=== PATIENT | male | born 1945 | race Caucasian/White ===

== ENCOUNTER 2017-01-21 09:47 | Emergency (ER) | payer BC ==
[2017-01-21 10:47] VITALS: BP 155/63
--- NOTE | 2017-01-21 10:56 | UC ---
Eye Complaint HPI - HPI Summary HPI Summary: 71 year old male presents with complains of right eye discharge, erythema, and foreign body sensation. - History of Current Complaint Chief Complaint: UCEye Stated Complaint: RIGHT EYE COMPLAINT Time Seen by Provider: 01/21/17 10:52 Hx Obtained From: Patient Onset/Duration: Sudden Onset, Lasting Hours Timing: Constant Severity Initially: Moderate Severity Currently: Moderate Pain Scale Used: 0-10 Numeric - 5 - Allergies/Home Medications Allergies/Adverse Reactions: Allergies Allergy/AdvReac Type Severity Reaction Status Date / Time No Known Allergies Allergy Verified 01/21/17 10:26 Home Medications: Home Medications Cholesterol Med,?Name 1 tab PO 01/21/17 [History] Misc Natural Products [Osteo Bi-Flex Joint Shiel] 1 tab PO DAILY 01/21/17 [ History Confirmed 01/21/17] Naproxen Sodium [Naproxen Sodium 220 mg cap] 440 mg PO Q12H PRN 01/21/17 [ History Confirmed 01/21/17] PMH/Surg Hx/FS Hx/Imm Hx - Surgical History Surgical History: Yes Surgery Procedure, Year, and Place: Bilateral LENS CATARACT. HERNIA REPAIR. LOCAL ANESTHESIA- FOR HAND INJURY IN 9 TH GRADE - Family History Known Family History: Positive: None - Social History Alcohol Use: None Substance Use Type: None Smoking Status (MU): Never Smoked Tobacco Review of Systems Constitutional: Negative Skin: Negative Eyes: Drainage, Eye Redness, Photophobia ENT: Negative Respiratory: Negative Cardiovascular: Negative Gastrointestinal: Negative Genitourinary: Negative Motor: Negative Neurovascular: Negative Musculoskeletal: Negative Neurological: Negative Psychological: Negative All Other Systems Reviewed And Are Negative: Yes Physical Exam Triage Information Reviewed: Yes Vital Signs: Initial Vital Signs Temp 36.6 C 01/21/17 10:29 Pulse 58 01/21/17 10:29 Resp 18 01/21/17 10:29 BP 155/63 01/21/17 10:29 Pulse Ox 96 01/21/17 10:29 Vital Signs Reviewed: Yes Eye Exam: Normal Eyes: Positive: Conjunctiva Inflamed, Discharge ENT Exam: Normal Dental Exam: Normal Neck exam: Normal Neck: Positive: 1 Respiratory Exam: Normal Cardiovascular Exam: Normal Abdominal Exam: Normal Musculoskeletal Exam: Normal Neurological Exam: Normal Psychological Exam: Normal Skin Exam: Normal Eye Complaint Course/Dx - Differential Dx/Diagnosis Provider Diagnoses: right eye allergic conjunctivitis Discharge - Discharge Plan Condition: Stable Disposition: HOME Prescriptions: Tobramycin/Dexameth OPTH.SUSP* [Tobradex 0.3-0.1%*] 1 drop RIGHT EYE Q4H #1 btl Patient Education Materials: Conjunctivitis (ED) Referrals: Billy Cochran MD [Primary Care Provider] - Gabe Bunn MD [Medical Doctor] - Additional Instructions: use eye drops for 3 to 5 days
== END 2017-01-21 11:12 | disposition home or self-care (01) ==
LOC: UCCORT 09:47
DX: H10.11 Acute atopic conjunctivitis, right eye (principal); Z98.42 Cataract extraction status, left eye; Z98.41 Cataract extraction status, right eye
CPT/HCPCS: 99212; G0463

== ENCOUNTER 2017-05-01 08:20 | Observation (INO) | payer BC ==
[2017-05-01] MEDS ORDERED: NS 0.9% 1000 ML* 1,000 ML IV ONE (08:57)
[2017-05-01] MEDS ORDERED: Meclizine TAB* 12.5 MG PO ONE (08:57)
[2017-05-01 09:19] LABS: Hematocrit 47 % (42-52); Hemoglobin 16.3 g/dl (14.0-18.0); Mean Corpuscular HGB Conc 34 g/dl (31-36); Mean Corpuscular Hemoglobin 31 pg (27-31); Mean Corpuscular Volume 90 fL (80-94); Mean Platelet Volume 9 um3 (7.4-10.4); Red Blood Count 5.27 10^6/ul (4.0-5.4); Red Cell Distribution Width 13 % (10.5-15); White Blood Count 9.9 10^3/ul (3.5-10.8)
[2017-05-01 09:33] LABS: Anion Gap 6 mmol/L (2-11); BUN/Creatinine Ratio 17.7 (8-20); Blood Urea Nitrogen 20 mg/dL (6-24); CO2 Carbon Dioxide 28 mmol/L (22-32); Calcium 9.4 mg/dL (8.6-10.3); Chloride 103 mmol/L (101-111); EGFR African American 82.7 (>60); EGFR Non-African American 64.3 (>60); Glucose 112 mg/dL (70-100); Potassium 3.9 mmol/L (3.5-5.0); Sodium 137 mmol/L (133-145); Total Protein 6.9 g/dL (6.4-8.9)
--- NOTE | 2017-05-01 09:33 | RAD ---
INDICATION: Dizziness. COMPARISON: There are no prior studies available for comparison. TECHNIQUE: Contiguous axial sections of the brain were obtained from the skull base to the vertex without contrast. FINDINGS: The ventricles, cisterns and sulci are within normal limits. No significant focal abnormality or mass effect is seen. There is no evidence for hemorrhage. There is an oval-shaped mass within the left maxillary sinus measuring 2.8 x 1.6 cm in size most consistent with a mucous retention cyst or polyp. The visualized portion of the paranasal sinuses otherwise appear clear. IMPRESSION: 1. NO EVIDENCE FOR ACUTE INTRACRANIAL ABNORMALITY. 2. MUCOUS RETENTION CYST VERSUS POLYP WITHIN THE LEFT MAXILLARY SINUS.
[2017-05-01 09:34] LABS: ALT 30 U/L (7-52); AST 19 U/L (13-39); Alkaline Phosphatase 70 U/L (34-104); C Reactive Protein 4.69 mg/L (< 5.00); Creatine Kinase 46 U/L (10-223); Globulin 2.9 g/dL (2-4)
[2017-05-01 09:35] LABS: Troponin I 0.01 ng/mL (<0.04)
--- NOTE | 2017-05-01 09:52 | RAD ---
INDICATION: Dizziness. COMPARISON: There are no prior studies available for comparison. TECHNIQUE: Dual-energy PA and lateral views of the chest were obtained. FINDINGS: The heart is within normal limits in size. Mediastinal and hilar contours appear within normal limits. The lungs are hyperinflated and clear. No pleural effusion is seen. IMPRESSION: NO EVIDENCE FOR ACTIVE CARDIOPULMONARY DISEASE.
[2017-05-01 09:55] LABS: Alcohol < 10 mg/dL (<10)
[2017-05-01] MEDS ORDERED: cefTRIAXone(*) 1 GM in NS 0.9% 50 ML* 50 ML IVPB ONE (10:07)
[2017-05-01 10:17] LABS: TSH (Thyroid Stimulating Horm) 1.73 mcIU/mL (0.34-5.60)
--- NOTE | 2017-05-01 11:40 | RAD ---
INDICATION: Right upper extremity swelling and pain. COMPARISON: There are no prior studies available for comparison. TECHNIQUE: Multiple real-time, color flow and Doppler tracings of the right upper extremity were obtained. FINDINGS: The axillary, brachial, basilic and cephalic veins all demonstrate normal compressibility, augmentation with compression and phasic response with respiration. The radial and ulnar veins demonstrate normal compressibility. The subclavian and internal jugular veins also demonstrate normal color flow imaging and phasic response with respiration. IMPRESSION: NO EVIDENCE FOR DEEP VENOUS THROMBOSIS.
[2017-05-01] MEDS ORDERED: Triamterene/HCTZ 37.5-25 MG* CAP PO ONE (12:06)
[2017-05-01 12:17] LABS: Urine Bacteria Absent (Absent); Urine Bilirubin Negative (Negative); Urine Glucose Negative (Negative); Urine Nitrite Negative (Negative)
[2017-05-01] MEDS ORDERED: Aspirin TAB* 325 MG PO ONE (13:35)
[2017-05-01] MEDS ORDERED: Atorvastatin* 80 MG TAB PO ONE (13:38)
[2017-05-01] MEDS ORDERED: Acetaminophen TAB* 325 MG PO PRN (13:44)
--- NOTE | 2017-05-01 15:47 | RAD ---
INDICATION: Unsteady gait, posterior CVA. COMPARISON: Comparison is made with a prior CT of the brain from May 01, 2017. TECHNIQUE: Sagittal T1, axial T1, T2, susceptibility, FLAIR and diffusion weighted images were obtained. FINDINGS: The ventricles, cisterns and sulci appear to be within normal limits. There are few small areas of increased signal intensity and T2-weighted images present in the subcortical white matter in the right frontal and temporal lobe suggestive of mild chronic small vessel ischemic changes. No other focal abnormality or mass effect is seen. No areas of restricted diffusion are present. There is no evidence for infarct or hemorrhage. There is a 2.2 cm nodular density within the left maxillary sinus most consistent with a polyp or mucous retention cyst. The visualized portion of the paranasal sinuses and mastoid air cells otherwise appear clear. IMPRESSION: 1. NO EVIDENCE FOR ACUTE INTRACRANIAL ABNORMALITY. 2. FINDINGS SUGGESTIVE OF MILD CHRONIC SMALL VESSEL ISCHEMIC CHANGES.
[2017-05-01] MEDS: Atorvastatin* 80 MG TAB PO SCH (17:59)
--- NOTE | 2017-05-01 18:25 | ED ---
Magui Velez Alfonso scribed for Delbert Ruby MD on 05/01/17 at 1002 . Dizziness - HPI Summary HPI Summary: This patient is a 71 year old M presenting to [facility] accompanied by female with a chief complaint of room spinning dizziness and lightheadedness since waking up today. He states its like I am drunk. The patient rates the pain 3/10 in severity. Symptoms aggravated by movement. Symptoms alleviated by rest. Patient reports right wrist pain and swelling. Patient denies headache, blurred vision, palpitations, CP, SOB, sinus pressure, ear pain, rhinorrhea, sore throat, and N/ V. - History Of Current Complaint Chief Complaint: EDDizziness Stated Complaint: DIZZY, RIGHT HAND WRIST INJURY Time Seen by Provider: 05/01/17 08:47 Hx Obtained From: Patient Timing: Constant Character: Room Spinning, Lightheaded Aggravating Factor(s): Other - Movement Alleviating Factor(s): Rest Associated Signs And Symptoms: Positive: Other: - right wrist pain and swelling. Patient denies headache, blurred vision, palpitations, CP, SOB, sinus pressure, ear pain, rhinorrhea, sore throat, and N/V. - Allergies/Home Medications Allergies/Adverse Reactions: Allergies Allergy/AdvReac Type Severity Reaction Status Date / Time No Known Allergies Allergy Verified 05/01/17 08:27 PMH/Surg Hx/FS Hx/Imm Hx Cardiovascular History: Reports: Hx Hypertension - HISTORY OF IN THE PAST Respiratory History: Reports: Hx Sleep Apnea - IMPROVING WITH WEIGHT LOSS Sensory History: Reports: Hx Cataracts - LEFT EYE, Hx Contacts or Glasses - GLASSES Denies: Hx Hearing Aid Opthamlomology History: Reports: Hx Cataracts - LEFT EYE, Hx Contacts or Glasses - GLASSES EENT History: Denies: Hx Deafness - Surgical History Surgery Procedure, Year, and Place: Bilateral LENS CATARACT. HERNIA REPAIR Hx Anesthesia Reactions: No Infectious Disease History: Yes Infectious Disease History: Denies: Traveled Outside the [place] in Last 30 Days - Family History Known Family History: Positive: Cardiac Disease - [place], Other - Pancreatic cancer - Social History Alcohol Use: None Hx Substance Use: No Substance Use Type: Reports: None Hx Tobacco Use: No Smoking Status (MU): Never Smoked Tobacco Review of Systems Negative: Fever Negative: Blurred Vision Positive: Other - Negative sinus pressure. Negative: Sore Throat, Ear Ache, Nasal Discharge Negative: Palpitations, Chest Pain Negative: Shortness Of Breath Negative: Vomiting, Nausea Positive: Other - right wrist pain and swelling Neurological: Other - room spinning dizziness and lightheadedness Negative: Headache All Other Systems Reviewed And Are Negative: Yes Physical Exam - Summary Physical Exam Summary: VITAL SIGNS: Reviewed. GENERAL: Patient is a well-developed and obese male who is lying comfortable in the stretcher. Patient is not in any acute respiratory distress. HEAD AND FACE: No signs of trauma. No ecchymosis, hematomas or skull depressions. No sinus tenderness. EYES: PERRLA, EOMI x 2, No injected conjunctiva, no nystagmus. No photophobia. EARS: Hearing grossly intact. Ear canals and tympanic membranes are within normal limits. MOUTH: Oropharynx within normal limits. NECK: Supple, trachea is midline, no adenopathy, no JVD, no carotid bruit, no c- spine tenderness, neck with full ROM. No meningeal signs, no Kernig's or brudzinskis signs. CHEST: Symmetric, no tenderness at palpation LUNGS: Clear to auscultation bilaterally. No wheezing or crackles. CVS: Regular rate and rhythm, S1 and S2 present, no murmurs or gallops appreciated. ABDOMEN: Soft, non-tender. No signs of distention. No rebound no guarding, and no masses palpated. Bowel sounds are normal. EXTREMITIES: FROM in all major joints, no edema, no cyanosis or clubbing. NEURO: Alert and oriented x 3. No acute neurological deficits. Speech is normal and follows commands. SKIN: Dry and warm. Red streaking at right forearm ventral aspect going from the wrist to the antecubital fossa GCS: 15 Triage Information Reviewed: Yes Vital Signs On Initial Exam: Initial Vitals Temp Pulse Resp BP Pulse Ox 97.5 F 45 16 171/75 96 05/01/17 08:27 05/01/17 08:27 05/01/17 08:27 05/01/17 08:27 05/01/17 08:27 Vital Signs Reviewed: Yes - [place] Coma Scale Coma Scale Total: 15 Diagnostics - Vital Signs Vital Signs Temp Pulse Resp BP Pulse Ox 05/01/17 09:53 160/90 05/01/17 09:43 184/63 05/01/17 09:33 50 14 95 05/01/17 09:05 50 17 181/80 95 05/01/17 09:00 54 18 96 05/01/17 08:52 49 183/88 96 05/01/17 08:51 53 95 05/01/17 08:27 97.5 F 45 16 171/75 96 - Laboratory Lab Results: Lab Results 05/01/17 05/01/17 05/01/17 Range/Units 09:03 09:03 09:03 WBC 9.9 (3.5-10.8) 10^3/ul RBC 5.27 (4.0-5.4) 10^6/ul Hgb 16.3 (14.0-18.0) g/dl Hct 47 (42-52) % MCV 90 (80-94) fL MCH 31 (27-31) pg MCHC 34 (31-36) g/dl RDW 13 (10.5-15) % Plt Count 195 (150-450) 10^3/ul MPV 9 (7.4-10.4) um3 Neut % (Auto) 74.2 (38-83) % Lymph % (Auto) 14.7 L (25-47) % Johnston % (Auto) 7.8 (1-9) % Eos % (Auto) 2.6 (0-6) % Baso % (Auto) 0.7 (0-2) % Absolute Neuts (auto) 7.4 (1.5-7.7) 10^3/ul Absolute Lymphs (auto) 1.5 (1.0-4.8) 10^3/ul Absolute Monos (auto) 0.8 (0-0.8) 10^3/ul Absolute Eos (auto) 0.3 (0-0.6) 10^3/ul Absolute Basos (auto) 0.1 (0-0.2) 10^3/ul Absolute Nucleated RBC 0.01 10^3/ul Nucleated RBC % 0.1 Sodium 137 (133-145) mmol/L Potassium 3.9 (3.5-5.0) mmol/L Chloride 103 (101-111) mmol/L Carbon Dioxide 28 (22-32) mmol/L Anion Gap 6 (2-11) mmol/L BUN 20 (6-24) mg/dL Creatinine 1.13 (0.67-1.17) mg/dL Est GFR ( Amer) 82.7 (>60) Est GFR (Non-Af Amer) 64.3 (>60) BUN/Creatinine Ratio 17.7 (8-20) Glucose 112 H (70-100) mg/dL Lactic Acid 1.3 (0.5-2.0) mmol/L Calcium 9.4 (8.6-10.3) mg/dL Magnesium 2.0 (1.9-2.7) mg/dL Total Bilirubin 1.10 H (0.2-1.0) mg/dL AST 19 (13-39) U/L ALT 30 (7-52) U/L Alkaline Phosphatase 70 (34-104) U/L Total Creatine Kinase 46 (10-223) U/L Troponin I 0.01 (<0.04) ng/mL C-Reactive Protein 4.69 (< 5.00) mg/L Total Protein 6.9 (6.4-8.9) g/dL Albumin 4.0 (3.2-5.2) g/dL Globulin 2.9 (2-4) g/dL Albumin/Globulin Ratio 1.4 (1-3) TSH Pending Serum Alcohol < 10 (<10) mg/dL Result Diagrams: 05/01/17 09:03 05/01/17 09:03 Lab Statement: Any lab studies that have been ordered have been reviewed, and results considered in the medical decision making process. - Radiology CXR Radiology Interpretation Completed By: Radiologist - NO EVIDENCE FOR ACTIVE CARDIOPULMONARY DISEASE. ED physician has reviewed this radiology report and agrees. - CT Brain CT Interpretation Completed By: Radiologist - 1. NO EVIDENCE FOR ACUTE INTRACRANIAL ABNORMALITY. 2. MUCOUS RETENTION CYST VERSUS POLYP WITHIN THE LEFT MAXILLARY SINUS. ED physician has reviewed this radiology report and agrees. - EKG 0937 Cardiac Rate: Bradycardia EKG Rhythm: Sinus Bradycardia - 49 BPM EKG Interpretation: No ST elevations. - Additional Comments Diagnostic Additional Comments: Venous Doppler study reveals, per radiologist, NO EVIDENCE FOR DEEP VENOUS THROMBOSIS. ED physician has reviewed this radiology report and agrees. Dizzy Course/Dx - Course Assessment/Plan: This patient is a 71 year old M presenting to [facility] accompanied by female with a chief complaint of room spinning dizziness and lightheadedness since waking up today. He states its like I am drunk. The patient rates the pain 3/10 in severity. Symptoms aggravated by movement. Symptoms alleviated by rest. Patient reports right wrist pain and swelling. Patient denies headache, blurred vision, palpitations, CP, SOB, sinus pressure, ear pain, rhinorrhea, sore throat, and N/V. An EKG reveals SB at 49 BPM. CXR reveals, per radiologist, NO EVIDENCE FOR ACTIVE CARDIOPULMONARY DISEASE. ED physician has reviewed this radiology report and agrees. CT Brain reveals, per radiologist, 1. NO EVIDENCE FOR ACUTE INTRACRANIAL ABNORMALITY. 2. MUCOUS RETENTION CYST VERSUS POLYP WITHIN THE LEFT MAXILLARY SINUS. ED physician has reviewed this radiology report and agrees. Venous Doppler study reveals, per radiologist, NO EVIDENCE FOR DEEP VENOUS THROMBOSIS. ED physician has reviewed this radiology report and agrees. Test results with no significant abnormalities. I believe the patient is developing cellulitis at the [facility] therefore he was given Rocephin. The patients heartrate has decreased to 42 BPM and then he becomes symptomatic. The patient is currently not taking any beta blockers or calcium channel blockers. At this point, I consulted Dr. Taylor (hospitalist) at 1151 who agrees to admit. Patient will be admitted with follow up from Dr. Taylor. The patient is agreeable with this plan. The patient is hemodynamically stable, alert and oriented x3. - Diagnoses Provider Diagnoses: Cellulitis of right upper extremity, Symptomatic bradycardia - Provider Notifications Discussed Care Of Patient With: Gissel Taylor Time Discussed With Above Provider: 11:51 Instructed by Provider To: Other - Consulted Dr. Taylor (hospitalist) at 1151 who agrees to admit. Discharge - Discharge Plan Condition: Stable Disposition: ADMITTED TO [facility] documentation as recorded by the Magui phoenix Alfonso accurately reflects the service I personally performed and the decisions made by me, Delbert Ruby MD.
[2017-05-01] MEDS: Cephalexin CAP* 500 MG PO SCH (20:38)
--- NOTE | 2017-05-01 21:59 | HP ---
CC: Dr. Cochran * [facility] MEDICINE HISTORY AND PHYSICAL: DATE OF ADMISSION: 05/01/17 ATTENDING PHYSICIAN: Gissel Tellez MD * (dictation provided by Gloria Donahue NP ). CHIEF COMPLAINT: Unsteady gait. HISTORY OF PRESENT ILLNESS: Mr. Levin is a 71-year-old male with the past medical history of hyperlipidemia who presents to the hospital today with concern for unsteady gait. Mr. Levin states that he was feeling in his normal state of health yesterday. On the , he did feel perhaps he was coming down with a cold and felt ill all over, but then this resolved. He went to bed last night and was feeling well. When he woke up this morning, he felt unsteady even while lying in the bed. He does not describe dizziness, but describes a sensation of an unsteady imbalance. He has no vision changes, no double vision. He ambulated at home and was very unsteady on his feet and asked his to be brought to the emergency room. It is very unusual for the patient as he generally avoids medical care if at all possible and has been otherwise healthy. In the emergency room, the patient was described as being dizzy. He had a CT of the brain which showed no acute abnormality. He had a chest x-ray, which showed no acute abnormality. His labs were unremarkable; however, there was a concern in the emergency room that the patient had some swelling in his right wrist with some streaking and redness going towards the elbow with concern of infection. The patient states that there had been no trauma to the area, but he did note that it felt a little painful yesterday while he was doing some work. He denies any weakness. He has report of a mild headache in the lower part of his head. PAST MEDICAL HISTORY: 1. Hyperlipidemia. 2. Obstructive sleep apnea. MEDICATIONS: The patient takes aspirin 81 mg p.o. daily and one half of a tablet, statin, he is not sure of the name or the dosage. FAMILY HISTORY: The patient reports that his mother related to Alzheimer's , dad related to alcoholism. SOCIAL HISTORY: No prior alcohol, tobacco, or drug use. The patient lives with his who is healthcare proxy. REVIEW OF SYSTEMS: Constitutional: No fever, no chills, no unintended weight loss. Cardiac: No chest pain. No edema. Respiratory: No cough, hemoptysis, or shortness of breath. GI: No nausea, vomiting, diarrhea, abdominal pain. : No gross hematuria, dysuria. Neuro: Positive for feeling unsteady with imbalance and a wide gait pattern. Eyes: No vision complaints. ENT: No dysphagia. Musculoskeletal: No arthralgias or myalgias. Skin: No rashes, lesions. Psych: No depression or anxiety. PHYSICAL EXAMINATION GENERAL: Mr. Levin is sitting in the bed. He is in no acute distress. He states he does not feel unsteady or imbalanced or dizzy while seated. VITAL SIGNS: Temperature 97.6, pulse rate 60, respiratory rate 18, O2 saturation 97% on room air. Blood pressure 156/93. His blood pressure has been as high as 191 systolically since arrival. LUNGS: Clear to auscultation bilaterally with no accessory muscle use and good aeration. HEART: S1, S2; no murmur, rub, or gallop and regular. ABDOMEN: Soft, nontender with bowel sounds positive x4. EXTREMITIES: No cyanosis or edema. NEUROLOGIC: He moves all extremities equally with good +5 strength. He has no facial asymmetry. His extraocular movements are intact. His pupils are equal and reactive. His deep tendon reflexes are very minimal, but they are reactive and faint. He has no ataxia noted with [id number]. He has a wide-gait pattern. He is unable to do heel-to-toe walking. With Romberg, he is listing forward very faintly and states that he feels like he is trying very hard to compensate. There is no visual field cut. SKIN: Intact. The patient has a small area of swelling on the right wrist. The patient's staff report that the streaking up his arm is decreasing apparently since the first dose of antibiotics in the emergency room. LABORATORY DATA: WBC 9.9, hemoglobin 16.3, hematocrit 47, platelet count 195. Sodium 137, potassium 3.9, chloride 103, serum bicarbonate 28, BUN 20, creatinine 1.13, glucose 112, lactic acid 1.3, total bilirubin 1.10, CRP 4.69. TSH 1.73. Urine shows no evidence of infection. Serum alcohol screen is negative. CT brain shows no evidence for acute intracranial abnormality. Mucous retention cyst versus polyp within the left maxillary sinus. The chest x-ray shows no evidence for active cardiopulmonary disease. Venous Doppler study of the right upper extremity is negative. ASSESSMENT: Mr. Levin is a 71-year-old male with past medical history of hyperlipidemia who takes aspirin 81 mg daily, who presents to the hospital today with concern for gait abnormality and balance issues which started when he awoke this morning. Our plans are for observation in the hospital for the followin. Gait instability and balance issue: I am suspicious for t a posterior circulation cerebrovascular accident. Plan for an MRI of the brain to rule out cerebrovascular accident. If it is positive, we will obtain a CTA of head and neck, telemetry monitoring, echocardiogram, neurological checks. Also plan to look for possible risk factors for stroke by checking a lipid panel, hemoglobin A1c, continue with aspirin 325 mg which has been given now. Continue with statin 80 mg which has been given now. I have consulted with Dr. Hernandez. 2. ? R forearm cellulitis: Patient has had improvement in what was thought to be streaking up in right forearm since he was given antibiotics. Plan for continue keflex BID. 3. Hypertension: Plan to allow for permissible hypertension in the setting of possible cerebrovascular accident, otherwise we will make an effort to control blood pressure as indicated based on the clinical course. I anticipate he will need medications at the time of discharge. 4. Hyperlipidemia: The patient is unsure of the dosage of his home statin, planned for high dose statin now until stroke is ruled out. 5. Obstructive sleep apnea: The patient states he is not able to tolerate CPAP. 6. Code status: Full code. TIME SPENT: Approximately 60 minutes were spent on the admission of this patient, more than half the time was spent with patient at the bedside reviewing the events leading up to this hospitalization, performing physical examination, reviewing my plan of care. GLORIA DONAHUE, AMINA [id number]/CPS #: [id number] BLAISE
[2017-05-02] MEDS ORDERED: Meclizine TAB* 12.5 MG PO SCH (06:00)
[2017-05-02 06:36] LABS: HDL Cholesterol 40.2 mg/dL
[2017-05-02] MEDS: Cephalexin CAP* 500 MG PO SCH (08:35)
[2017-05-02] MEDS ORDERED: Hydrochlorothiazide TAB* 25 MG PO SCH (09:00)
[2017-05-02] MEDS ORDERED: Aspirin TAB* 325 MG PO SCH (10:00)
[2017-05-02] MEDS ORDERED: Iohexol 350* (CONTRAST) 500 ML MDV IV ONE (10:56)
--- NOTE | 2017-05-02 11:44 | RAD ---
INDICATION: TIA. COMPARISON: Correlation is made with a prior MRI of the brain from May 01, 2017. TECHNIQUE: A CT angiogram of the head and neck was performed following intravenous injection of 80 ml of Omnipaque 350 nonionic contrast. Contiguous axial sections were obtained from the thoracic inlet through the skull vertex. Images were reconstructed in the coronal and sagittal planes and in a 3-D volume rendered format. The distal cervical internal carotid artery diameter is used as the denominator for stenosis measurement. FINDINGS: RIGHT CAROTID: The right common and internal carotid arteries appear widely patent without evidence for stenosis. LEFT CAROTID: The left common and internal carotid arteries appear patent without evidence for stenosis. There is minimal calcific plaque present within the carotid bulb. VERTEBRALS: The vertebral arteries appear patent without gross evidence for stenosis. The right vertebral artery is dominant. CTA BRAIN: The internal carotid, anterior and middle cerebral arteries appear patent without evidence for high-grade stenosis or occlusion. The A1 segment of the right anterior cerebral artery is small in caliber possibly representing normal variation. The vertebral, basilar and posterior cerebral arteries appear patent without evidence for high-grade stenosis or occlusion. No gross focal perfusion abnormalities are seen. No aneurysm or vascular malformation is seen. NECK: No significant enlarged lymph nodes are seen. The parotid and submandibular glands appear to be within normal limits. There is a 1.3 x 1.0 cm nodule within the left thyroid lobe. The lung apices appear clear. IMPRESSION: 1. NO EVIDENCE FOR CAROTID STENOSIS. 2. NO EVIDENCE FOR LARGE VESSEL INTRACRANIAL THROMBUS. 3. NODULE WITHIN THE LEFT THYROID LOBE. RECOMMEND FURTHER EVALUATION WITH A THYROID ULTRASOUND. CPT II Codes: 3100F
--- NOTE | 2017-05-02 12:57 | PN ---
Subjective Date of Service: 05/02/17 Interval History: Patient seen and examined at bedside. Patient offers no acute complaints. Gait completely back to normal. Family History: Unchanged from Admission Social History: Unchanged from Admission Past Medical History: Unchanged from Admission Objective Active Medications: Acetaminophen (Tylenol Tab*) 650 mg PO Q6H PRN Aspirin (Aspirin Tab*) 325 mg PO DAILY VIC Atorvastatin Calcium (Lipitor*) 80 mg PO 1700 VIC Cephalexin HCl (Keflex Cap*) 500 mg PO BID VIC Hydrochlorothiazide (Hydrodiuril Tab*) 25 mg PO DAILY VIC Vital Signs Temp Pulse Resp BP Pulse Ox 97.7 F 58 18 139/69 95 05/02/17 11:41 05/02/17 11:41 05/02/17 11:41 05/02/17 11:41 05/02/17 11:41 Oxygen Devices in Use Now: None Appearance: sitting up in bed, NAD Eyes: No Scleral Icterus, PERRLA Ears/Nose/Mouth/Throat: NL Teeth, Lips, Gums Neck: NL Appearance and Movements; NL JVP Respiratory: Symmetrical Chest Expansion and Respiratory Effort, Clear to Auscultation Cardiovascular: NL Sounds; No Murmurs; No JVD, RRR Abdominal: NL Sounds; No Tenderness; No Distention Extremities: No Edema Skin: No Rash or Ulcers Neurological: Alert and Oriented x 3, NL Muscle Strength and Tone Lines/Tubes/Other Access: Clean, Dry and Intact Peripheral IV Nutrition: Taking PO's Result Diagrams: 05/01/17 09:03 05/01/17 09:03 Additional Lab and Data: . Assess/Plan/Problems-Billing Pt is a 71 y/o M w/ PMH significant for HLD and ALONA who presented to the ED on 05/01/2017 with the c/o of unsteady gait placed on observation for TIA. - Patient Problems (1) TIA (transient ischemic attack) Comment: Appreciate neurology input. MRI brain normal. Presentation suspicious for cerebellar TIA instead of BPPV. CTA head withour stenosis. Await echo. Plan to increase ASA to 325mg and increase Lipitor to 80mg. (2) Right forearm cellulitis Comment: Continue Keflex BID (3) HLD (hyperlipidemia) Comment: Increase Lipitor to 80mg. Unable to contact PCP to verify home dose. (4) DVT prophylaxis Comment: SQ Heparin (5) Full code status Status and Disposition: OBV for TIA. Discharge home once Echocardiogram complete and read.
[2017-05-02 15:25] VITALS: BP 172/73
--- NOTE | 2017-05-02 16:10 | ECHO ---
Patient: LISA JOHN [facility] Rec#: [id number] : 1945 Date: 05/02/2017 Age: 71y Height: 177.8 cm / 70.0 in Weight: 130.18 kg / 286.9 lbs Sex: M BSA: 2.43 Room#: [facility] Admit Date#: 05/01/2017 Type: Inpatient Referring: Gloria Donahue NP Reading: Escobar Jimenez MD Junior Software Engineer: Mirna McdonaldUNM [facility] Transthoracic Echocardiogram Indication: CVA/TIA BP: 146/71 HR: 50 Rhythm: Bradycardia Findings History: HLD, HTN, ALONA. Technical Comments: The study quality is fair. The study is technically limited due to patient body habitus. Completed at 1400. Left Ventricle: The left ventricular chamber size is normal. Moderate concentric left ventricular hypertrophy is observed. Global left ventricular wall motion and contractility are within normal limits. There is normal left ventricular systolic function. The estimated ejection fraction is 55-60%. Abnormal left ventricular diastolic function is observed. Left Atrium: The left atrium is moderate to severely dilated. Right Ventricle: The right ventricle is mildly dilated. The right ventricular global systolic function is normal. Right Atrium: The right atrium is moderately dilated. Aortic Valve: The aortic valve is trileaflet. The aortic valve leaflets are mildly thickened. There is a trace of aortic regurgitation. There is no evidence of aortic stenosis. Mitral Valve: The mitral valve leaflets are mildly thickened. There is trace to mild mitral regurgitation. There is no evidence of mitral stenosis. Tricuspid Valve: The tricuspid valve leaflets are normal. There is trace to mild tricuspid regurgitation. The right ventricular systolic pressure is estimated at 38 mmHg. There is evidence of mild pulmonary hypertension. There is no tricuspid stenosis. Pulmonic Valve: The pulmonic valve appears normal. There is a trace pulmonic regurgitation. There is no pulmonic stenosis. Pericardium: There is no significant pericardial effusion. A pericardial fat pad is visualized. Aorta: There is mild dilatation of the ascending aorta. There is no dilatation of the aortic arch. The aortic root is normal in size. Pulmonary Artery: The main pulmonary artery appears normal. Venous: The inferior vena cava is dilated. There is a greater than 50% respiratory change in the inferior vena cava dimension. Conclusions Moderate concentric left ventricular hypertrophy is observed. Global left ventricular wall motion and contractility are within normal limits. There is normal left ventricular systolic function. The estimated ejection fraction is 55-60%. There is a trace of aortic regurgitation. There is trace to mild mitral regurgitation. There is trace to mild tricuspid regurgitation. There is evidence of mild pulmonary hypertension. There is no significant pericardial effusion. Measurements Name Value Normal Range RVIDd (AP) 2D 3.6 cm (0.9 - 2.6) RVDdMajor (2D) 4 cm (2.2 - 4.4) RAd ISD 4CH 5.8 cm (3.4 - 4.9) RA (A4C)W 4.4 cm (2.9 - 4.6) IVSd (2D) 1.5 cm (0.6 - 1) LVPWd (2D) 1.3 cm (0.6 - 1) LVIDd (2D) 5.3 cm (3.6 - 5.4) LVIDs (2D) 4.1 cm - LV FS (2D) 22 % (25 - 45) Aortic Annulus 1.9 cm (1.4 - 2.6) Ao root diameter (2D) 3.3 cm (2.1 - 3.5) Ascending Ao 3.9 cm (2.1 - 3.4) Aortic arch 3.1 cm (1.8 - 3.4) LA dimension (AP) 2D 4.5 cm (2.3 - 3.8) LAd ISD 4CH 6 cm (2.9 - 5.3) LA ISD 4CH W 4.8 cm (2.5 - 4.5) Name Value Normal Range LA ESV SP 4CH (A/L) 79 ml - LA ESV SP 2CH (A/L) 148 ml - LA ESV BP (A/L) 115 ml - LA ESV BP (A/L) index 47 ml/m2 - LA ESV SP 4CH (MOD) 72 ml - LA ESV SP 2CH (MOD) 137 ml - Name Value Normal Range MV E-wave Vmax 0.53 m/sec - MV deceleration time 357.6 msec - MV A-wave Vmax 0.7 m/sec - MV E:A ratio 0.75 ratio - LV septal e' Vmax 0.06 m/sec - LV lateral e' Vmax 0.09 m/sec - LV E:e' septal ratio 8.83 ratio - LV E:e' lateral ratio 5.89 ratio - Name Value Normal Range AV Vmax 1.7 m/sec - AV VTI 35.28 cm - AV peak gradient 11.09 mmHg - AV mean gradient 5.79 mmHg - LVOT Vmax 1.24 m/sec - LVOT VTI 28.23 cm - LVOT peak gradient 6.15 mmHg - LVOT mean gradient 3.04 mmHg - SUSANNE Vmax 0.69 m/sec - Name Value Normal Range TR Vmax 2.4 m/sec - TR peak gradient 23 mmHg - RAP 15 mmHg - RVSP 38 mmHg - IVC diameter 2.3 cm - Name Value Normal Range PV Vmax 1 m/sec - PV peak gradient 4.3 mmHg -
[2017-05-02] MEDS: Atorvastatin* 80 MG TAB PO SCH (17:19)
--- NOTE | 2017-05-02 20:05 | CONS ---
CONSULTATION REPORT: DATE OF CONSULT/DICTATION: 05/02/17 PATIENT OF: Marysol Prakash NP, [facility]. CHIEF COMPLAINT: Episode of unsteady gait. HISTORY OF PRESENT ILLNESS: He is a 71-year-old man, who presents with unsteady gait. He was fine in the past days and weeks, but yesterday morning, he woke up with unsteady gait. He denies any true room spinning. There was no lightheadedness. He just felt like he was going to fall and stumble. He had no double vision, blurry vision, no room spinning. He had no numbness or weakness. He had no headache. His symptoms resolved in the evening but lasted throughout the day, yesterday. They were not worse with positional changes and there was no nausea or vomiting. He has never had such symptoms before and he has no history of tinnitus. He has a history of hyperlipidemia and obstructive sleep apnea. He is on aspirin 81 mg daily and a half tablet of statin. His mother of Alzheimer's. His dad had alcoholism. He does not smoke, drink, or use drugs. He lives with his who is the healthcare proxy. REVIEW OF SYSTEMS: Negative in all 14 spheres other than HPI. PHYSICAL EXAM: Temperature 99.5, pulse 61, respirations 20, blood pressure 151/ 75. He is alert and oriented with normal speech, comprehension. Cranial nerves II through XII were intact. There was no nystagmus. Fundi were benign. Motor exam revealed normal tone and strength. Coordination and gait, [id number] is intact. His Romberg was slightly unsteady and he said this is a chronic issue and is unchanged from baseline. Reflexes were 1 and equal, toes were downgoing. Chest: Clear. Cardiovascular: Regular rate and rhythm. Abdomen is soft with positive bowel sounds. He has his right wrist cellulitis, currently being treated. DIAGNOSTIC STUDIES/LAB DATA: I reviewed his MRI scan films, which showed no acute stroke. He had some mild chronic small vessel ischemic changes. Laboratories includes the UA with 3+ red's, 2+ protein. CBC normal. Chemistries normal other than glucose of 112. TSH 1.73. LDL was 101. IMPRESSION: I discussed with Carroll and have a call into Marysol Prakash NP, that Carroll's episode of unsteadiness yesterday does not statistically would most likely be peripheral vertigo but the actual description does not sound like it was a true room spinning. His symptoms were not worse with positional changes. There was no nausea, there was no tinnitus, there were no prior symptoms. It is possible even though the MRI scan was negative that this represents some sort of cerebellar transient ischemic attack. This is a more significant possibility. I would at this point increase his aspirin, adjust his statin a little, make a further increase in his statin, I do not know what is baseline dose is, and I will get a CTA to particularly look at his basilar artery circulation. I would check an echo with bubble study as well as I discussed my concerns with the patient. Again, I cannot be sure of the diagnosis at this time, but this would be the single greatest concern. [id number]/[facility] #: [id number] BLAISE
--- NOTE | 2017-05-03 11:13 | DS ---
DISCHARGE SUMMARY: DATE OF ADMISSION: 05/01/17 DATE OF DISCHARGE: 05/02/17 ATTENDING PHYSICIAN: Dr. Aleksandra Oscar * (report dictated by Mati Prakash NP). PRIMARY DIAGNOSIS: Probable transient ischemic attack. SECONDARY DIAGNOSES: 1. Hyperlipidemia. 2. Right forearm cellulitis. 3. Obstructive sleep apnea. STUDIES WHILE IN THE HOSPITAL: 1. CT of the brain without contrast 05/01/17: No evidence for acute intracranial abnormality. Mucous retention cyst versus polyp within the left maxillary sinus. 2. Chest PA and lateral 05/01/17: No evidence for acute cardiopulmonary disease. 3. Right upper extremity vein Doppler 05/01/17: No evidence for deep vein thrombosis. 4. 05/02/17, CT of the head and neck: No evidence for carotid stenosis. No evidence for large vessel intracranial thrombus. Nodule within the left thyroid lobe. Recommend further evaluation with thyroid ultrasound. 5. Transthoracic echocardiogram: Moderate concentric left ventricular hypertrophy is observed. Global left ventricular wall motion contractility within normal limits. There was normal left ventricular systolic function. The estimated ejection fraction is 55% to 60%. There was trace of aortic regurgitation. There was trace of mild mitral regurgitation. There was trace to mild tricuspid regurgitation. There was evidence of mild pulmonary hypertension. There was no significant pericardial effusion. 6. MRI of the brain without contrast: No evidence for acute intracranial abnormality. Findings suggestive of mild chronic small vessel ischemic changes. MEDICATIONS AT THE TIME OF DISCHARGE: Changed medication: 1. Aspirin 325 mg oral daily. Increased medication: 1. Lipitor 80 mg oral at 1700. New medication: 1. Keflex 500 mg oral 4 times daily for 7 days. 2. Hydrochlorothiazide 25 mg oral daily. HISTORY OF PRESENT ILLNESS AND HOSPITAL COURSE: Mr. Levin is a 71-year-old male with past medical history significant for hyperlipidemia, presented to the emergency room on 05/01/17 with a concern of unsteady gait. The patient had a sudden onset on Tuesday morning, feeling unsteady. He had difficulty ambulating. He denied dizziness. He came to the emergency room for further evaluation. In the emergency room, the patient had a CT of the brain that was negative. There was concern for possible posterior circulation CVA. The patient was admitted to the telemetry floor. The patient had an MRI of the brain which was negative. The patient was seen in consultation by Dr. Hernandez from Neurology. Please refer to his consultation for details. The patient had a CT of the head and neck that was negative. An echocardiogram that was barely normal. The patient had elevated LDL 101 and cholesterol 163. His Lipitor will be increased from 40 mg to 80 mg. There is a chance that patient only takes 20 mg of Lipitor and then in that case he will increase from 20 mg to 40 mg. In addition, recommendation from Neurology was to increase his aspirin to 325 mg. The patient had no further episodes of unsteady gait and was stable to be discharged home. On presentation, the patient had redness and streaking of his right forearm. He was started on Keflex and had significant improvement. He will continue treatment for an additional 7 days. The patient does have a history of hypertension, although we allowed for permissive hypertension here, the patient should have his blood pressure followed closely as an outpatient and medication should be instituted if his blood pressure remains high. His systolic ranged from 140 to 170 while he was here. On 05/02/17, vitals were as follows: Temperature 97.7, heart rate 58, respiratory rate 18, blood pressure 139/69, oxygen saturation 95%. At this point, the patient was stable for discharge. DISCHARGE PLAN: The patient was discharged on a low-fat diet. The patient should follow up with primary care provider within 4 to 7 days. The patient has been instructed to return to the hospital if he experiences any new numbness , weakness, or difficulty ambulating. I reviewed all the instructions for the patient, he is agreeable with his discharged today. This is a summarized report of a complex medical history and hospital stay. For more details, please see the entire medical record. TIME SPENT: Time for this discharge was 60 minutes and 25 minutes were spent with the patient discussing medications and followup instructions and plan. CONDITION ON DISCHARGE: Stable. MATI PRAKASH NP [id number]/[facility] #: [id number] BLAISE
== END 2017-05-02 17:33 | disposition home or self-care (01) ==
LOC: ED 08:20 → MEDTELE 11:58
PROVIDERS: ADMIT Internal Medicine; ATTEND Hospitalist
DX: R26.89 Other abnormalities of gait and mobility (principal); I10 Essential (primary) hypertension; E78.5 Hyperlipidemia, unspecified; G47.33 Obstructive sleep apnea (adult) (pediatric); L03.113 Cellulitis of right upper limb; Z79.899 Other long term (current) drug therapy; R00.1 Bradycardia, unspecified; R42 Dizziness and giddiness; M79.89 Other specified soft tissue disorders
CPT/HCPCS: 36415; 70450; 70496; 70498; 70551; 71020; 80053; 80061; 80320; 81003; 81015; 82550; 83036; 83605; 83735; 83880; 84443; 84484; 85025; 86140; 87040; 93005; 93306; 96365; 99284; A9270-GY; G0378; G0480; J0696; Q9967

== ENCOUNTER 2018-12-26 14:33 | Observation (INO) | payer BC, MEDICARE, OTHER ==
[2018-12-26] MEDS ORDERED: NS 0.9% 1000 ML** 1,000 ML IV ONE ×2 (15:40→17:25)
--- NOTE | 2018-12-26 16:00 | ED ---
Neurological HPI - HPI Summary HPI Summary: This patient is a 73 year old M presenting to [facility] accompanied by with a chief complaint of dizziness since morning of 12/25/18. The dizziness improved during the day and got worse the night of 12/25/18. Patient reports feeling dizzy and impaired balance. Patient denies CP, SOB, weakness, slurring words, facial droop. - History of Current Complaint Chief Complaint: EDNeurologicalDeficit Stated Complaint: DIZZINESS PER PT Time Seen by Provider: 12/26/18 15:31 Hx Obtained From: Patient Onset/Duration: Sudden Onset, Started days ago, Still Present Timing: Constant Pain Intensity: 0 Pain Scale Used: 0-10 Numeric Character: Head Spinning Aggravating: Nothing Alleviating: Nothing Associated Signs and Symptoms: Positive: Unsteady Gait, Dizziness. Negative: Impaired Speech, Chest Pain, Shortness of Breath - Allergy/Home Medications Allergies/Adverse Reactions: Allergies Allergy/AdvReac Type Severity Reaction Status Date / Time No Known Allergies Allergy Verified 05/01/17 08:27 PMH/Surg Hx/FS Hx/Imm Hx Endocrine/Hematology History: Denies: Hx Diabetes Cardiovascular History: Reports: Hx Hypertension - HISTORY OF IN THE PAST Respiratory History: Reports: Hx Sleep Apnea - IMPROVING WITH WEIGHT LOSS History: Denies: Hx Renal Disease Sensory History: Reports: Hx Cataracts - LEFT EYE, Hx Contacts or Glasses - GLASSES Denies: Hx Deafness, Hx Hearing Aid Opthamlomology History: Reports: Hx Cataracts - LEFT EYE, Hx Contacts or Glasses - GLASSES - Surgical History Surgery Procedure, Year, and Place: Bilateral LENS CATARACT. HERNIA REPAIR Hx Anesthesia Reactions: No - Immunization History Immunizations Up to Date: Yes Infectious Disease History: No Infectious Disease History: Denies: Traveled Outside the [place] in Last 30 Days - Family History Known Family History: Positive: Cardiac Disease - [place], Other - Pancreatic cancer - Social History Occupation: Retired Lives: With Family Alcohol Use: None Hx Substance Use: No Substance Use Type: Reports: None Hx Tobacco Use: No Smoking Status (MU): Never Smoked Tobacco Review of Systems Negative: Chest Pain Negative: Shortness Of Breath Neurological: Negative - facial droop, Other - impaired balance, dizziness Negative: Weakness, Slurred Speech All Other Systems Reviewed And Are Negative: Yes Physical Exam - Summary Physical Exam Summary: GENERAL: Patient is a well-developed and nourished M who is lying comfortable in the stretcher. Patient is not in any acute respiratory distress. HEAD AND FACE: Normocephalic EYES: PERRLA, EOMI x 2. EARS: Hearing grossly intact. MOUTH: Oropharynx within normal limits. NECK: Supple, trachea is midline, no adenopathy, no JVD, no carotid bruit. CHEST: Symmetric, no tenderness at palpation LUNGS: Clear to auscultation bilaterally. No wheezing or crackles. CVS: Regular rate and rhythm, S1 and S2 present, no murmurs or gallops appreciated. ABDOMEN: Soft, non-tender. Bowel sounds are normal. No abnormal abdominal pulsations. EXTREMITIES: Full ROM in all major joints, no edema, no cyanosis or clubbing. NEURO: Alert and oriented x 3. No acute neurological deficits. Speech is normal and follows commands. Cranial nerves II-XII grossly intact, no dysmetria finger to nose, nml heel to crowe SKIN: Dry and warm Triage Information Reviewed: Yes Vital Signs On Initial Exam: Initial Vitals Temp Pulse Resp BP Pulse Ox 98.3 F 54 18 149/74 94 12/26/18 14:39 12/26/18 14:39 12/26/18 14:39 12/26/18 14:39 12/26/18 14:39 Vital Signs Reviewed: Yes - Emile Coma Scale Best Eye Response: 4 - Spontaneous Best Motor Response: 6 - Obeys Commands Best Verbal Response: 5 - Oriented Coma Scale Total: 15 Diagnostics - Vital Signs Vital Signs Temp Pulse Resp BP Pulse Ox 12/26/18 14:39 98.3 F 54 18 149/74 94 - Laboratory Result Diagrams: 12/26/18 15:37 12/26/18 15:37 Lab Statement: Any lab studies that have been ordered have been reviewed, and results considered in the medical decision making process. - Radiology CXR Radiology Interpretation Completed By: Radiologist Summary of Radiographic Findings: CXR reveals, per radiologist, IMPRESSION: POOR INSPIRATION WITH PRESUMED BIBASILAR ATELECTASIS. ED physician has reviewed this radiology report. - CT Brain CT CT Interpretation Completed By: Radiologist Summary of CT Findings: Brain CT reveals, per radiologist, IMPRESSION: 1. NO EVIDENCE FOR ACUTE INTRACRANIAL ABNORMALITY. 2. POLYP OR MUCOUS RETENTION CYST WITHIN THE LEFT MAXILLARY SINUS. ED physician has reviewed this radiology report. - EKG 1444 Cardiac Rate: Bradycardia EKG Rhythm: Sinus Bradycardia Summary of EKG Findings: An EKG at 1444 reveals sinus bradycardia 45 bpm, minimal ST depression in lateral leads, borderline left axis deviation. - Additional Comments Diagnostic Additional Comments: MRI reveals, per radiologist: ..... ED physician has reviewed this report. Re-Evaluation - Re-Evaluation First Eval Re-Evaluation Time: 18:33 Comment: Discussed results and plan of care with pt. Course/Dx - Course Course Of Treatment: This patient is a 73 year old M presenting to [facility] accompanied by with a chief complaint of dizziness since morning of . Blood work obtained. Potassium is 3.4, Chloride is 100, BUN/Creatinine Ratio is 20.4, Glucose is 150, Total Bilirubin is 1.50. UA obtained. Ur Leukocyte Esterase is trace, Urine Ascorbic Acid is present. An EKG at 1444 reveals sinus bradycardia 45 bpm, minimal ST depression in lateral leads, borderline left axis deviation. Brain CT reveals, per radiologist, IMPRESSION: 1. NO EVIDENCE FOR ACUTE INTRACRANIAL ABNORMALITY. 2. POLYP OR MUCOUS RETENTION CYST WITHIN THE LEFT MAXILLARY SINUS. CXR reveals, per radiologist, IMPRESSION: POOR INSPIRATION WITH PRESUMED BIBASILAR ATELECTASIS. In the ED course the patient was given fluids. Case discussed with hospitalist. I discussed results with patient. The patient agrees with this plan. Pt will be admitted. - Diagnoses Provider Diagnoses: Gait instability, Dizziness - Physician Notifications Discussed Care Of Patient With: Erick Roberson Time Discussed With Above Provider: 17:32 Instructed by Provider To: Other - Discussed pt case with Dr. Roberson, who agrees to see pt first thing in the morning. 17:41 - Dr. Taylor accepts pt for admission. Discharge - Sign-Out/Discharge Documenting (check all that apply): Patient Departure - Admit Patient Received Moderate/Deep Sedation with Procedure: No - Discharge Plan Condition: Good Disposition: ADMITTED TO [facility] - Billing Disposition and Condition Condition: GOOD Disposition: Admitted to [facility] - Attestation Statements Document Initiated by Scribe: Yes Documenting Scribe: Kailee Morgan Provider For Whom Scribe is Documenting (Include Credential): Dr. Jignesh Hermosillo MD Scribe Attestation: I, Kailee Morgan, scribed for Dr. Jignesh Hermosillo MD on 12/27/18 at 0805. Scribe Documentation Reviewed: Yes Provider Attestation: The documentation as recorded by the scribe, Kailee Morgan accurately reflects the service I personally performed and the decisions made by me, Dr. Jignesh Hermosillo MD Status of Scribe Document: Viewed
[2018-12-26 16:19] LABS: ABS Eosinophils 0.2 10^3/ul (0-0.6); ABS Lymphocytes 1.3 10^3/ul (1.0-4.8); ABS Monocytes 0.6 10^3/ul (0-0.8); ABS Neutrophils 6.8 10^3/ul (1.5-7.7); Eosinophil % 2.6 %; Hematocrit 46 % (42-52); Hemoglobin 15.9 g/dL (14.0-18.0); Lymphocyte % 14.8 %; Mean Corpuscular HGB Conc 35 g/dL (31-36); Mean Corpuscular Hemoglobin 31 pg (27-31); Mean Corpuscular Volume 90 fL (80-94); Mean Platelet Volume 9.5 fL (7.4-10.4); Nucleated Red Blood Cells % 0.1; Platelet Count 201 10^3/uL (150-450); Red Blood Count 5.09 10^6 /uL (4.18-5.48); Red Cell Distribution Width 14 % (10-15)
[2018-12-26 16:24] LABS: Activated Partial Thrombo Time 33.4 seconds (26.0-38.0); INR 0.98 (0.82-1.09)
[2018-12-26 16:33] LABS: Troponin I 0.01 ng/mL (<0.04)
[2018-12-26 16:49] LABS: Albumin 4.2 g/dL (3.2-5.2); Albumin/Globulin Ratio 1.4 (1-3); BUN/Creatinine Ratio 20.4 (8-20); Calcium 9.6 mg/dL (8.6-10.3); EGFR African American 77.4 (>60); Globulin 2.9 g/dL (2-4); Potassium 3.4 mmol/L (3.5-5.0); Total Bilirubin 1.5 mg/dL (0.2-1.0); Total Protein 7.1 g/dL (6.4-8.9)
[2018-12-26 17:09] LABS: T4, Total 9.9 mcg/dL (6.09-12.23)
[2018-12-26 17:15] LABS: TSH (Thyroid Stimulating Horm) 1.03 mcIU/mL (0.34-5.60)
[2018-12-26 18:38] LABS: Urine Appearance Cloudy; Urine Bacteria Absent (Absent); Urine Bilirubin Negative (Negative); Urine Blood Negative (Negative); Urine Color Yellow; Urine Glucose Negative (Negative); Urine Ketones Negative (Negative); Urine Nitrite Negative (Negative); Urine Protein Negative (Negative); Urine Red Blood Cell 2+(6-10/hpf) (Absent); Urine Specific Gravity 1.012 (1.010-1.030); Urine Urobilinogen Negative (Negative); Urine White Blood Cell Trace(0-5/hpf) (Absent)
[2018-12-26] MEDS ORDERED: Acetaminophen TAB* 325 MG PO PRN (18:59)
[2018-12-26] MEDS: Heparin VIAL(*) 5000 UNITS/ML VIAL (FIVE THOUSAND) SUBCUT SCH (20:24)
--- NOTE | 2018-12-26 21:10 | HP ---
CC: Dr. Billy Cochran * HISTORY AND PHYSICAL: DATE OF ADMISSION: 12/26/18 PRIMARY CARE PROVIDER: Dr. Billy Cochran. ATTENDING PHYSICIAN: Dr. Jose Cabral * (dictated by RICARDA Camacho). CHIEF COMPLAINT: 1. Dizziness. 2. Gait imbalance. HISTORY OF PRESENT ILLNESS: Mr. Levin is a 73-year-old male with a past medical history of TIA, hypertension, hyperlipidemia, obstructive sleep apnea, obesity, who presented to the ER today with complaints of 1 episode of dizziness that occurred yesterday. The patient states he was lying on a concrete floor working on machinery, he had just started, he looked up and became dizzy. This lasted approximately 5 minutes and stopped when he sat up and rested. He has had no episodes since then, but he does note that last night he was walking and developed a gait imbalance where he was listing to the right. He said this has been constant but has slowly improved. Nothing made the gait disturbance worse, it was improved with time. He feels he is almost back to normal now. The patient notes that he has a history of vertigo approximately 2 months ago. He underwent physical therapy for this problem and improved. He notes that this feels different. He admits to increased fatigue in the last couple days. He notes he has been working outside a lot over the weekend, outside in the warm weather. He denies headache, vision changes, lightheadedness, presyncope, syncope. He denies occurrences like this in the past. He denies dizziness with position changes and in fact denies dizziness altogether except for the one episode yesterday morning. He denies nausea, vomiting, diarrhea. He denies chest pain, shortness of breath, extremity weakness, both generalized and focal. He denies numbness and tingling. In the ER, the patient received a full workup, which included blood work showing an elevated glucose, elevated total bilirubin. The patient received 2 L IV fluid bolus. Chest x-ray revealed poor inflation and presumed bibasilar atelectasis. EKG showed sinus bradycardia with a rate of 45, no ST changes and no change from EKG from April 2017 with a rate of 49. CT of the head reveals no intracranial abnormality. Hospitalist team was asked to evaluate the patient for admission. PAST MEDICAL HISTORY: 1. History of TIA, probable TIA April 2017. The patient presented with difficulty ambulating, unsteady gait. 2. Hyperlipidemia. 3. Hypertension. 4. Obstructive sleep apnea, noncompliant with CPAP machine. 5. Obesity. PAST SURGICAL HISTORY: Umbilical hernia, UPPP, left hand, wrist. HOME MEDICATIONS: 1. Aspirin 325 mg p.o. daily. 2. Atorvastatin 80 mg p.o. at bedtime. 3. Hydrochlorothiazide 25 mg p.o. daily. DRUG ALLERGIES: No known drug allergies. FAMILY HISTORY: Father related to alcohol use. Mother related to Alzheimer's disease. Sister has a history of ovarian cancer. Maternal grandmother had MS, pancreatic cancer. Maternal grandfather had laryngeal cancer. The patient denies family history of CVA or diabetes mellitus. SOCIAL HISTORY: The patient denies current or former use of tobacco. He drinks alcohol approximately 1 to 2 times per year. He works part-time in [employer]. He is relatively active working around the house. He lives with his . He has 2 children that live outside the house. In the event that he is unable to make his own medical decisions, he has appointed his , Bebeto Levin, to be his surrogate decision maker. REVIEW OF SYSTEMS: A 10-point review of systems has been performed and all the pertinent positives and negatives are in the HPI. All other systems are negative. PHYSICAL EXAMINATION GENERAL: Mr. Levin is a well-developed, well-nourished, morbidly obese, older white male who is sitting up in bed. He is pleasant, cooperative and jovial. He appears to be in no acute distress. He appears comfortable. Vital Signs: Temperature 98.3 temporal, heart rate 47, respiratory rate 17, oxygen saturation 93% on room air, blood pressure 156/77. HEENT: Visual guillen are grossly intact. PERRLA. EOMI. Nonicteric sclerae. Hearing grossly intact. The oral mucous membranes are moist. There are no lesions. Tongue is at midline. Pharynx is clear. RESPIRATORY: Symmetrical chest expansion without use of accessory muscles. Lungs clear to auscultation without rhonchi, wheezes, or rubs. There is no digital clubbing or cyanosis. CARDIOVASCULAR: Bradycardic rate. Rhythm controlled. S1, S2 present without murmurs, rubs, clicks, or gallops. There is no JVD. There is no peripheral edema. Radial and pedal pulses are palpable. ABDOMEN: Bowel sounds in all quadrants. The abdomen is soft without tenderness to palpation. MUSCULOSKELETAL: Full range of motion without pain or deformities. NEUROLOGIC: The patient is awake. He is alert and oriented x3. Cranial nerves are grossly intact. He is able to move all of his extremities. He has a motor strength of 5/5 in both upper and lower extremities. Sensation intact in upper and lower extremities. REM intact. The patient has a lumbering but steady gait. He does not list to the right or left. He needs no assistive devices with walking. DIAGNOSTIC STUDIES/LAB DATA: CBC within normal limits. Chemistry panel with potassium 3.4, chloride 100, BUN/creatinine 20/0.4, glucose 150. Total bilirubin 1.50. ASSESSMENT AND PLAN: Mr. Levin is a 73-year-old male with a past medical history of transient ischemic attack, hyperlipidemia, hypertension, obstructive sleep apnea, obesity who presented to the ER today with complaints of one transient episode of vertigo lasting 5 minutes and gait ataxia, which has lasted since last night and is slowly improving. The patient will be admitted to observation for: 1. Transient vertigo, gait disturbance. The patient has multiple risk factors for cerebrovascular accident. He also has a past medical history of probable transient ischemic attack in April 2017, where there was concern for possible posterior circulation cerebrovascular accident after patient presented with difficulty with ambulation. Due to these concerns, the patient will be admitted to observation with consult to Neurology. Head CT was within normal limits. ECG shows sinus bradycardia. The patient's gait is improving. We will continue to work the patient up. He will receive a brain MRI. Again, Neurology will be consulted tomorrow for further recommendations. The patient is noted to have TSH of 1.03, T4 of 9.90, magnesium 2.0, B12 of 910. We will continue risk stratification with hemoglobin A1c and lipid panel, which have been ordered. 2. History of transient ischemic attack. The patient was recommended to take aspirin 325 p.o. daily. He will continue this as at home. 3. Hypertension. Continue hydrochlorothiazide 25 as at home. 4. Hyperlipidemia. Continue atorvastatin. Fasting lipid panel ordered. 5. Obstructive sleep apnea. The patient has a CPAP at home, but he is noncompliant. He was offered CPAP while in the hospital, but he has refused. 6. Obesity. BMI 40.2. 7. FEN: The patient has been placed on heart healthy diet. He has received 2 L fluid bolus. No further IV hydration will be ordered. 8. DVT prophylaxis: According to the DVT risk assessment, the patient scores 3 , placing him at high risk. He will be started on heparin 5000 subcutaneously q.8 hours. 8. Code status: Full code. TIME SPENT: Approximately 60 minutes was spent on this admission, greater than half that time was spent with the patient and his obtaining history, performing physical, and reviewing the plan of care. The case has been reviewed with my attending, Dr. Cabral, who is in agreement with the plan of care. RICARDA DELAROSA [id number]/CPS #: [id number] MTDD
[2018-12-27] MEDS: Heparin VIAL(*) 5000 UNITS/ML VIAL (FIVE THOUSAND) SUBCUT SCH ×2 (06:20→14:13)
[2018-12-27 06:38] LABS: HDL Cholesterol 39.5 mg/dL
[2018-12-27] MEDS ORDERED: Hydrochlorothiazide TAB* 25 MG PO SCH (09:00)
--- NOTE | 2018-12-27 12:43 | PN ---
Progress Note - Progress Note Date of Service: 12/27/18 Note: Patient seen and examined. Here w/ vertigo. Had normal MRI. Will be seen by neurologist today. Can go home later today if there are no findings.
[2018-12-27 13:52] VITALS: BP 147/71
[2018-12-27] MEDS ORDERED: Iohexol 350* (CONTRAST) 500 ML MDV IV ONE (15:01)
[2018-12-27 15:19] LABS: Calcium 8.8 mg/dL (8.6-10.3); EGFR African American 83.3 (>60); EGFR Non-African American 68.9 (>60)
[2018-12-27 15:33] LABS: Potassium 3.8 mmol/L (3.5-5.0)
--- NOTE | 2018-12-27 16:27 | CONS ---
NEUROLOGY CONSULTATION NOTE: DATE OF CONSULT: 12/27/18 CONSULTING PROVIDER: Dr. Cabral. REASON FOR CONSULT: Vertigo and gait instability. CHIEF COMPLAINT: Swaying while walking. HISTORY OF PRESENT ILLNESS: Mr. Carroll Levin is a 73-year-old right-handed , who is semiretired, who has past medical history significant for benign positional paroxysmal vertigo, who had a bout of vertigo approximately 2 months ago that was corrected with Dejan-Hallpike maneuver. The patient also has a history of obstructive sleep apnea, hypertension, dyslipidemia who presented with a short bout of vertigo on Tuesday. The patient stated that he was working on a piece of machinery at 10 a.m. on 12/25/18. He was lying on the concrete. He was moving his head from right to left. Suddenly when he moved in one direction, he developed significant dizziness. The dizziness was described as spinning sensation around him. He denied any nausea. He denied any ringing of the ears or hearing loss. He got up and had a drench of sweat. He was extremely hot. The symptoms lasted for 2- 3 minutes. He realized he had to take a break and went home to take it easy. The vertigo subsided and never returned. However, the same night leading to the following morning; Tuesday morning, the patient felt off balance. Every time he would stand up to walk, he felt as if he was falling to the right. He never fell. He never lost consciousness. He was mostly swaying towards the right side. He denied any focal weakness or paresthesias. As the day progressed on Tuesday, the symptoms improved. Once he came to the ER and received IV fluids, his symptoms resolved. He denied any neck pain. He denied any numbness or tingling sensation in the feet. The patient currently is asymptomatic. He has been walking around without any difficulty. The patient stated that he takes aspirin and statin therapy daily. PAST MEDICAL HISTORY: Hypertension, dyslipidemia, obstructive sleep apnea; status post oral surgery. The patient refused to use a CPAP. The patient continues to snore at nighttime. His spouse denied any episodes of apnea. MEDICATIONS: 1. Aspirin 325 mg p.o. daily. 2. Atorvastatin 80 mg p.o. daily. 3. Hydrochlorothiazide 25 mg p.o. daily. ALLERGIES: No known drug allergies. FAMILY HISTORY: There is no family history of stroke or seizures. 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 He denied tobacco use or alcohol use. REVIEW OF SYSTEMS: A 14-point review of systems was obtained and otherwise negative, except for what is mentioned in the HPI. PHYSICAL EXAMINATION: Vitals: Temperature of 98, heart rate of 57, respiratory rate 20, oxygen saturation of 95%, blood pressure of 147/71. General: Well- nourished, well-developed man, who is morbidly obese, in no acute distress. Head: Atraumatic, normocephalic. Eyes: Conjunctivae and sclerae are clear. Neck: No nuchal rigidity. No tenderness to palpation in the occipital region. No lymphadenopathy. No carotid bruits. Pulmonary: Clear to auscultation bilaterally with no rhonchi or wheezing. Cardiac: Normal sinus rhythm with no murmurs or gallops. Extremities: Normal range of motion with no cyanosis or hammertoes. Sensation intact to light touch and pinprick throughout. Vibratory sensation is decreased in the right toe. The patient denied any radiating back pain. Coordination: Normal [id number] and rapid alternating movement. He had slight dysmetria to [id number] on the left side, but that resolved after a second attempt. Normal [id number]-trsj testing. Gait: No ataxia. Normal stance. Normal posture. DIAGNOSTIC STUDIES/LAB DATA: Laboratory data completed on 12/26/18: WBC of 9, hemoglobin of 15.9, hematocrit of 46, platelet count of 201. INR is 0.98, aPTT is 33. Sodium of 139, potassium 3.4, chloride of 100, creatinine 1.13, BUN and creatinine ratio of 20, glucose of 150, magnesium of 2. AST and ALT are normal. Vitamin B12 of 9.1. TSH of 1.03, thyroxine 9.90. Urinalysis, no evidence of pyuria. CT of the head without contrast showed no evidence of acute intracranial abnormality. Brain MRI without contrast completed on 12/26/18 showed no evidence of areas of restricted diffusion or tumors. I reviewed a head CTA from 05/02/17, the CTA showed no evidence of large-vessel occlusion. ASSESSMENT AND RECOMMENDATION: Mr. Carroll Levin is a 73-year-old man who presented with a transient episode of vertigo and gait imbalance that resolved. 1. Vertigo. I suspect the patient most likely has peripheral vertigo such as benign paroxysmal positional vertigo. The supporting evidence include: prior history of similar presentation, the intensity of his symptoms when initially started, and the worsening by head positioning. Also what supports peripheral vertigo is the duration of his symptoms, which were intermittent and only lasted 2 to 3 minutes. He has no evidence of vertigo at this time and no neurological findings of nystagmus or ataxia. I encouraged him to perform the [place]-Hallpike maneuver if he develops similar symptoms of vertigo. There was no evidence of pontine or cerebellar stroke on MRI. 2. Symptoms of swaying towards the right side. I also suspect the symptoms related to this gait imbalance that is transient were related to a combination of dehydration and peripheral cause for his swaying. However, given his risk factors, it is reasonable to evaluate for any posterior circulation stenosis. I do not think he is having transient ischemic attack or clearly we ruled out a stroke. Please note that his symptoms started longer than 12 hours from when he had an MRI; therefore, the sensitivity should be high to pick up attendant a posterior circulation stroke. Plus, he does not have any current clinical examination findings of stroke and therefore, I do not think that is the diagnosis. The patient already is on high-dose aspirin and statin therapy. 3. History of obstructive sleep apnea. I encouraged the patient to follow up with his ENT specialist and consider using a CPAP as untreated obstructive sleep apnea can significantly increase his risk for stroke or cardiovascular disease. 4. Loss of vibration in the right great toe. The patient has no evidence of length-dependent neuropathy. His vitamin B12 and TSH are normal. He denied any low back pain. No further workup is recommended unless the patient develops any neuropathy or radiating back pain. Recommendation: I recommend a CTA of the head and neck before the patient is discharged. Continue aspirin and statin therapy. If the CTA shows no evidence of vascular stenosis or any changes from the study in 2017, the patient should not carry the diagnosis of TIA or stroke. His presentation is most likely consistent with a peripheral vertigo, most likely benign paroxysmal peripheral vertigo. [id number]/CPS #: [id number] BLAISE
[2018-12-27] MEDS ORDERED: Atorvastatin* 80 MG TAB PO SCH (17:00)
[2018-12-28] MEDS ORDERED: Aspirin TAB* 325 MG PO SCH (09:00)
--- NOTE | 2018-12-28 11:00 | DS ---
CC: Dr. Billy Cochran, [facility] DISCHARGE SUMMARY: DATE OF ADMISSION: 12/26/18 DATE OF DISCHARGE: 12/27/18 PRIMARY DIAGNOSIS: Vertigo due to otolith disease versus viral labyrinthitis. SECONDARY DIAGNOSES: 1. Obesity. 2. History of transient ischemic attack, 2017. 3. Hyperlipidemia. 4. Hypertension. 5. Obstructive sleep apnea, not treated with CPAP. MEDICATIONS ON DISCHARGE: 1. Acetaminophen as needed. 2. Aspirin 325 mg p.o. daily. 3. Atorvastatin 80 mg p.o. at bedtime. 4. Hydrochlorothiazide 25 mg p.o. q.a.m. HOSPITAL COURSE: A 73-year-old man presented to the emergency department after experiencing difficulty walking and a tendency to veer to the right. This occurred after he had been lying on the floor of his garage and working, moving his head in various directions. He also worked on weekends outdoors and felt dehydrated. The patient was admitted for observation due to concern of posterior circulation stroke or TIA. Initial laboratory tests showed normal CBC , normal coagulation studies, normal electrolytes and blood sugar. He is assessed for diabetes with an A1c of 5.6%, which was consistent with normal blood sugar. Troponins were negative on 3 occasions. His TSH was 1.03, vitamin B12 level was 1010, BNP was 92. Urinalysis showed trace leuk esterase and 2+ blood. His head CT on admission was negative and a chest x-ray also showed poor inspiration with some bibasilar atelectasis. His MRI of the brain on the day of admission showed no acute intracranial abnormality. There is a small focus of T2 FLAIR hyperintensity in the white matter of the right frontal lobe. The patient was seen in consultation by Dr. Roberson of neurology who considered issues including benign positional vertigo, acoustic neuroma, posterior circulation stroke, or TIA. Because of the concern about posterior circulation TIA, he ordered a CT angiogram of the head and neck which showed no occlusive disease or dissection. The patient was ambulatory and happy to go home on the day of discharge. DISPOSITION: Home. DIET: Low-salt, low-fat. ACTIVITY: As tolerated. STATUS: Observation. CONDITION: Good. FOLLOWUP: Follow with Dr. Cochran, primary care office, within 1 to 2 weeks. This is advised. [id number]/[facility] #: [id number] [facility]
== END 2018-12-27 17:45 | disposition home or self-care (01) ==
LOC: ED 14:33 → MEDTELE 18:59
PROVIDERS: ADMIT Internal Medicine; ATTEND Internal Medicine
DX: R42 Dizziness and giddiness (principal); E66.9 Obesity, unspecified; Z68.41 Body mass index [BMI] 40.0-44.9, adult; Z86.73 Personal history of transient ischemic attack (TIA), and cerebral infarction without residual deficits; E78.5 Hyperlipidemia, unspecified; I10 Essential (primary) hypertension; G47.30 Sleep apnea, unspecified; Z79.82 Long term (current) use of aspirin; Z79.899 Other long term (current) drug therapy; R26.89 Other abnormalities of gait and mobility; Z98.818 Other dental procedure status
CPT/HCPCS: 36415; 70450; 70496; 70498; 70551; 71045; 80048; 80053; 80061; 81003; 81015; 82607; 83036; 83605; 83735; 83880; 84436; 84443; 84484; 85025; 85610; 85730; 87086; 93005; 96360; 96361; 96372; 99284; A9270-GY; G0378; J1644